=== PATIENT | male | born 1960 | race Caucasian/White ===

== ENCOUNTER → 2020-07-28 11:00 | Outpatient (BNVA) | payer OTHER, SELFPAY | PROVIDERS: PCP Internal Medicine; Referring Provider Internal Medicine; Visit Provider Nurse Practitioner Gerontology | DX: E11.65 Type 2 diabetes mellitus with hyperglycemia (principal); Z79.4 Long term (current) use of insulin; E78.5 Hyperlipidemia, unspecified; E55.9 Vitamin D deficiency, unspecified; Z79.899 Other long term (current) drug therapy | CPT/HCPCS: 82947 ==

== ENCOUNTER → 2020-11-26 13:09 | Outpatient (BNVA) | payer OTHER, SELFPAY | PROVIDERS: PCP Internal Medicine; Visit Provider Nurse Practitioner Gerontology ==

== ENCOUNTER 2022-03-02 11:43 | Outpatient (REF) | payer OTHER, SELFPAY ==
[2022-03-02 12:02] LABS: MANUAL DIFF FLAG NO
[2022-03-02 12:35] LABS: Basophils Percent Auto 0.3 % (0-2); Eosinophils Absolute Auto 0.3 X10*3/uL (0.0-0.4); Eosinophils Percent Auto 3.7 % (0-4); Hematocrit 44.1 % (42.0-52.0); Hemoglobin 14.9 g/dl (14.0-18.0); Imm Gran Abs Auto 0.02 X10*3/uL (0.00-0.03); Imm Gran Pct Auto 0.2 % (0.0-0.4); Lymphocytes Absolute Auto 2.7 X10*3/uL (1.2-4.9); Lymphocytes Percent Auto 29.4 % (20-40); Mean Corpuscular HGB Conc 33.8 g/dl (31.0-36.0); Mean Corpuscular Hemoglobin 30.9 pg (27.0-33.0); Mean Corpuscular Volume 91.5 fL (80.0-98.0); Monocytes Absolute Auto 0.9 X10*3/uL (0.1-1.2); Monocytes Percent Auto 9.9 % (2-11); Neutrophils Absolute Auto 5.2 x10*3/uL (2.0-8.3); Neutrophils Percent Auto 56.5 % (45-73); Platelet Count 233 X10*3/uL (160-400); Red Blood Count 4.82 X10*6/uL (4.60-5.80); White Blood Count 9.2 X10*3/uL (4.8-10.8)
[2022-03-02 12:54] LABS: Estimated Average Glucose 318 mg/dL; Hemoglobin A1c % 12.7 %
[2022-03-02 12:59] LABS: Alanine Aminotransferase 26 U/L (0-40); Albumin Level 4.2 g/dL (3.5-5.0); Alkaline Phosphatase 55 U/L (39-117); Anion Gap 12 (12-20); Aspartate Amino Transferase 23 U/L (5-37); Bilirubin Total 0.7 mg/dL (0.0-1.0); Blood Urea Nitrogen 23 mg/dL (9-16); Calcium 10.1 mg/dL (8.4-10.2); Carbon Dioxide 27 mmol/L (22-29); Chloride 103 mmol/L (96-108); Cholesterol 170 mg/dL; Estimated Glomerular Filt Rate > 60; Glucose Fasting 117 mg/dL (60-99); HDL Cholesterol 49 mg/dL; LDL Cholesterol Calculated 97 mg/dl; Potassium 4.6 mmol/L (3.3-5.1); Sodium 137 mmol/L (135-145); Total Protein 6.7 g/dL (6.5-8.0); Triglycerides 123 mg/dL
[2022-03-02 13:23] LABS: Thyroid Stimulating Hormone 1.49 uIU/mL (0.32-4.0)
[2022-03-02 14:07] LABS: Creatinine Urine 75.15 mg/dL; Microalbum/Creatinine Ratio Ur 9.3 ug/mg cr
== END 2022-03-02 11:44 | disposition home or self-care (01) ==
LOC: HO.LAB 11:43
PROVIDERS: PCP Internal Medicine; Visit Provider Internal Medicine
DX: Z00.00 Encounter for general adult medical examination without abnormal findings (principal); Z13.0 Encounter for screening for diseases of the blood and blood-forming organs and certain disorders involving the immune mechanism; E11.9 Type 2 diabetes mellitus without complications
CPT/HCPCS: 36415; 80053; 80061; 82043; 83036; 84443; 85025

== ENCOUNTER 2025-03-22 14:35 | Outpatient (AMB) | payer OTHER, SELFPAY ==
--- OUTSIDE RECORDS SUMMARY | 2025-03-22 14:38 | XMS_ITS | Clinical Summary ---
Author Organization [facility] Address [address], [address] [place] [address] Care Team Providers Care Clearing Hand Name Role Phone Unavailable Primary Care Provider Unavailabl e Encounters Date Type Department Care Team Description 03/05/2025 Telephone [facility] [address] [place] [address] Moises Oden MD Appointment Requested from Last 3 Months Social History Tobacco Use Types Packs/Day Years Used Date Smoking Tobacco: Never Assessed Sex and Gender Information Value Date Recorded Sex Assigned at Not on file Legal Sex Male 1:49 PM EDT Gender Identity Not on file Sexual Orientation Not on file Plan of Treatment Health Maintenance Due Date Last Done Comments Depression Screen 1974 HIV screen 1977 Hepatitis C screen 1980 DTaP/Tdap/Td vaccine (1 - Tdap) 1981 Lipids 2002 Colonoscopy 2007 Colorectal Cancer Screen 2007 FIT/FOBT: Average risk 2007 Fecal-DNA (Cologuard): Average risk 2007 Sigmoidoscopy/CT colonography 2007 Pneumococcal 50+ years Vacci ne (1 of 1 - PCV) 2012 Shingles vaccine (1 of 2) 2012 COVID-19 Vaccine (1 - 2023-2 5 season) 2024 Flu vaccine (#1) 04/05/2025 Respiratory Syncytial Virus (RSV) or age 60 yrs+ (1 - 1-dose 75+ series) 2037 Hepatitis A vaccine Aged Out No longe r eligible based on patient's age to complete this topic Hepatitis B vaccine Aged Out No longe r eligible based on patient's age to complete this topic Hib vaccine Aged Out No longer eligi ble based on patient's age to complete this topic Meningococcal (ACWY) vaccine Aged Out No longer eligible based on patient's age to complete this topic Meningococcal B vaccine Aged Out No l onger eligible based on patient's age to complete this topic Polio vaccine Aged Out No longer elig ible based on patient's age to complete this topic
--- NOTE | 2025-03-22 14:48 | MHC.PC.OV ---
Vital Signs 03/22/25 14:50 Height 5 ft 8 in Weight 169 lb 8 oz BMI 25.8 BP 120/70 Blood Pressure Location Lt brachial Position Sitting Pulse 67 Pulse Source Pulse Oximeter Temp 97.3 F Temp Source Temporal Artery Scan Pulse Oximetry (%) 98 Oxygen Delivery Method Room Air Intake Visit Reasons: annual exam/marie Dr ramos Intake Note: Patient is a new patient here to establish care for DM, Cholesterol, Sleep Apnea. Transferring care from Dr Ramos. Medical records have been requested and have received. Enterprise Systems Manager Required: No Supervisor Powder And Primer Canning: Present Accompanied by: Spouse Allergies metformin Adverse Reaction (Intermediate, Verified 03/22/25 15:05) Laziness Medication List - Last Reconciled 03/22/25 by ELAINE Hastings atorvastatin 80 mg PO DAILY insulin glargine (Basaglar KwikPen U-100 Insulin) 60 units (0.6 mL) subcut DAILY pen needle, diabetic As directed once daily Tobacco use date assessed: 03/22/25 Dental Screening Dental Screen Date: 03/22/25 Did you have a dental visit in the last 12 months?: No Did you have a dental problem in the last 6 months where you did not have access to dental care?: No Was dental information given to patient?: No HPI annual exam/marie Dr ramos HPI Details The is a reestablish care/transitioning care from Dr. Ramos. [place] and is awaiting being connected to a provider in his area. He has not been seen in office since 2021. The patient was prescribed his insulin and was booked for an in office evaluation. The patient is a 64-year-old male presenting with concerns regarding his diabetes management and upcoming cataract surgery. The patient has a history of Type 2 Diabetes Mellitus, with blood glucose levels previously reaching as high as 500 mg/dL when not on medication. He reports that his blood glucose levels have improved since resuming insulin therapy, although his Hemoglobin A1c remains elevated at 10.2%. The patient has experienced challenges in medication adherence, including a period of several months without insulin due to relocation and changes in healthcare providers. The patient is scheduled for cataract surgery but has been advised that the procedure cannot proceed until his Hemoglobin A1c is reduced to a safer level. He reports blurred vision in both eyes, with the left eye being particularly affected. The patient also has a history of hyperlipidemia, for which he is on a high dose of cholesterol medication. He has not reported any significant side effects from this medication. 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 right ear perforation, nerve deafness. Bilateral cataract surgery. [facility] Medical History (Updated 03/22/25 @ 15:36 by ELAINE Hastings) Hyperlipidemia associated with type 2 diabetes mellitus Common cold COVID-19 Erectile dysfunction Hyperlipidemia LDL goal <100 Vitamin D deficiency Diabetes mellitus with hyperglycemia Surgical History Hx of inguinal hernia surgery Hx of tonsillectomy Family History Father No problems noted. 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 1. Little interest or pleasure in doing things: not at all 2. Feeling down, depressed, or hopeless: not at all 3. Trouble falling or staying asleep, or sleeping too much: not at all 4. Feeling tired or having little energy: not at all 5. Poor appetite or overeating: not at all 6. Feeling bad about yourself - or that you are a failure or have let yourself or your family down: not at all 7. Trouble concentrating on things, such as reading the newspaper or watching television: not at all 8. Moving or speaking so slowly that other people could have noticed. Or the opposite - being so fidgety or restless that you have been moving around a lot more than usual: not at all 9. Thoughts that you would be better off or of hurting yourself in some way: not at all Total score: 0 Depression Screening Interpretation: Negative Depression Screening Done: Yes 63790 - PHQ-9 Billing: Yes Source: Developed by Cherelle Mims Kurt Kroenke and colleagues, with an educational orlando from [employer]. Thrive Questionnaire Date Thrive assessed: 03/22/25 I am a: Patient What is your living situation today?: I have a steady place to live Within the past 12 months, did the food you bought not last and you didn't have the money to get more?: Never true Within the past 12 months, did you worry whether your food would run out before you got money to buy more?: Never true Do you have trouble paying for medicines?: No Do you have trouble getting transportation to medical appointments?: No Do you have trouble paying your heating and electricity bill?: No Do you have trouble taking care of your child, family member or friend?: No Do you have trouble with day-to-day activities such as bathing, preparing meals, shopping, managing finances, etc.?: No Are you currently unemployed and looking for a job?: No Are you interested in more education?: No Please select the resources that you would like help with: None Currently or been in a relationship where the following occur: No concerns reported THRIVE Score: 0 AUDIT C Alcohol Use Questionnaire (AUDIT-C) 1. How often do you have a drink containing alcohol?: Never Total Score: 0 TRACE-7 AMB Questionnaire TRACE-7 Date TRACE - 7 assessed: 03/22/25 Feeling nervous, anxious, or on edge: 0 = Not at all Not being able to stop or control worryin = Not at all Worrying too much about different things: 0 = Not at all Trouble relaxin = Not at all Being so restless that it is hard to sit still: 0 = Not at all Becoming easily annoyed or irritable: 0 = Not at all Feeling afraid as if something awful might happen: 0 = Not at all Total TRACE-7 score (0-4 normal; 5-9 mild; 10-14 moderate; 15-21 severe): 0 Source: Developed by Cherelle Mims Kurt Kroenke and colleagues, with an educational orlando from [employer]. Review of Systems Const Denies headache(s) Eyes Reports blurry vision and Denies loss of vision ENT Denies vertigo, Denies dizziness, Denies headache(s), Reports hearing loss (right ear, reports hole in right ear) and Denies sore throat Card Denies chest pain, Denies leg edema and Denies lightheadedness Resp Denies cough, Denies hemoptysis and Denies wheezing GI Denies abdominal pain, Denies melena, Denies constipation, Denies diarrhea and Denies vomiting Denies dysuria, Denies urinary frequency and Denies urinary urgency Musc Denies arthralgias, Denies joint swelling, Denies numbness and Denies tingling Neuro Denies Abnormal speech present, Denies behavioral changes, Denies vertigo, Denies dizziness, Denies headache(s), Denies loss of vision, Denies memory loss, Denies numbness and Denies tingling Psych Denies anxiety, Denies behavioral changes, Denies depression, Denies memory loss and Denies panic attacks Abiel/Lymph Denies easy bleeding and Denies easy bruising Aller/Immun Denies wheezing Physical exam (Primary Care) Vital Signs: Last Vital Signs Temp 97.3 F 03/22/25 14:50 Pulse 67 03/22/25 14:50 BP 120/70 03/22/25 14:50 Pulse Ox 98 03/22/25 14:50 Oxygen Delivery Method Room Air 03/22/25 14:50 BMI result Body Mass Index 25.8 Tobacco/Smoking Status: Tobacco use Status Tobacco use date assessed 03/22/25 03/22/25 14:54 Patient Tobacco Use Status Never used Tobacco 03/22/25 15:00 e-Cigarette/Vaping Use Never Used 03/22/25 15:00 PHQ-9: PHQ-9 Score PHQ-9: Total score 0 03/22/25 14:54 Depression Screening Interpretation: Negative Thrive Assessment: Date of Thrive Assessment Date Thrive assessed 03/22/25 03/22/25 14:54 Currently or been in a relationship where the following occur: No concerns reported Const General: healthy appearing, no acute distress, alert and awake Nutritional Appearance: well nourished Orientation/consciousness: oriented to person, oriented to place and oriented to time HENMT Ears: TM normal on the left and TM abnormal perforated without discharge on the right (chronic) General nose exam: Normal nasal mucous membranes and turbinates present Eyes Conjunctivae: conjunctivae normal Sclerae: sclerae normal Pupils: Equal, round and reactive pupils present Neck Neck: Yes no lymphadenopathy and Yes no JVD Thyroid: Thyroid normal Carotids: no bruits Resp Effort & Inspection: normal respiratory effort and not tachypneic Auscultation: no crackles, no rales, no rhonchi and no wheezes Cardio Rate: regular rate Rhythm: regular rhythm Heart sounds: no murmurs and normal S1 and S2 GI Palpation (GI): Soft to palpation, nontender, no hepatomegaly and no splenomegaly Auscultation: normal bowel sounds Skin General skin exam: no rashes or lesions noted and dry skin Neuro General: oriented to person, oriented to place and oriented to time Cranial nerves: Yes Equal, round and reactive pupils present Speech: No Abnormal speech present Gait exam (Neuro): Normal gait present Motor exam (neuro): no tremor noted Extrem Right upper extremity: full ROM Left upper extremity: full ROM Right lower extremity: full ROM; no edema Left lower extremity: full ROM; no edema Psych Mental Status: mental status grossly normal Speech and movement: Normal speech and movement present Affect: normal affect Attitude: cooperative Thought process: Normal thought process present Results AMB Hemoglobin A1c AMB Hemoglobin A1c 10.2 % Last Edit by SHEBA Sarkar on 03/22/25 15:18 Results Reviewed Results Reviewed: a1c 10.2% Coding Level of Care Code Est Pt Level 4 (71717) Diagnoses Type 2 diabetes mellitus with hyperglycemia, without long-term current use of insulin E11.65 Diabetes mellitus type: type 2 Diabetes mellitus termite control servicer insulin use: without care home use Hyperlipidemia LDL goal <100 E78.5 Additional Codes PHQ-9 - 37659 - PHQ-9 Billing: Yes ([id number]) Time Spent (min) 42 Assessment & Plan Assessment & Plan (1) Diabetes mellitus with hyperglycemia: Code(s): E11.65 - Type 2 diabetes mellitus with hyperglycemia Category: Medical Qualifiers: Diabetes mellitus type: type 2 Diabetes mellitus care home insulin use: without termite control servicer use Qualified Code(s): E11.65 - Type 2 diabetes mellitus with hyperglycemia Plan: A1c 10.2% in office. The patient a1c was 10.4% in 2019, explained to the patient that his blood sugar has not changed. He was on Jardiance 25 mg and metformin a 1000 mg b.i.d.. Both these medications are DC'd in the patient med list. Per patient, he ran out of this medication a while back and never had them refilled. He also complained that metformin made him feel weird. The patient is currently on insulin glargine 60 units s.c daily. Jardiance 25 mg reordered, and mounjaro 2.5 mg s.c qwk was added. The patient has a follow up appointment in April that was scheduled for preoperative clearance. Explained to the patient that he cannot be cleared with an A1C of 10.2%. Hence, we need to work on getting his blood sugar down. Preordered labs, will advise, told the patient to keep his follow appt. (2) Hyperlipidemia LDL goal <100: Code(s): E78.5 - Hyperlipidemia, unspecified Category: Medical Plan: No recent lipid panel to review. Previous cholesterols have been wnl. Continue Atorvastatin 80mg daily Orders: Orders Complete Blood Count Auto Diff Today E11.65 - Type 2 diabetes mellitus with hyperglycemia, E11.69 - Type 2 diabetes mellitus with other specified complication, E55.9 - Vitamin D deficiency, unspecified, E78.5 - Hyperlipidemia, unspecified, Z01.818 - Encounter for other preprocedural examination Lipid Panel Today E11.65 - Type 2 diabetes mellitus with hyperglycemia, E11.69 - Type 2 diabetes mellitus with other specified complication, E55.9 - Vitamin D deficiency, unspecified, E78.5 - Hyperlipidemia, unspecified, Z01.818 - Encounter for other preprocedural examination TSH reflex Free T4 Today E11.65 - Type 2 diabetes mellitus with hyperglycemia, E11.69 - Type 2 diabetes mellitus with other specified complication, E55.9 - Vitamin D deficiency, unspecified, E78.5 - Hyperlipidemia, unspecified, Z01.818 - Encounter for other preprocedural examination UA CC w/rflx Micro + Cult Today E11.65 - Type 2 diabetes mellitus with hyperglycemia, E11.69 - Type 2 diabetes mellitus with other specified complication, E55.9 - Vitamin D deficiency, unspecified, E78.5 - Hyperlipidemia, unspecified, Z01.818 - Encounter for other preprocedural examination Prothrombin Time INR Today E11.65 - Type 2 diabetes mellitus with hyperglycemia, E11.69 - Type 2 diabetes mellitus with other specified complication, E55.9 - Vitamin D deficiency, unspecified, E78.5 - Hyperlipidemia, unspecified, Z01.818 - Encounter for other preprocedural examination AMB Hemoglobin A1c Today E11.65 - Type 2 diabetes mellitus with hyperglycemia Comprehensive Met. Panel Today E11.65 - Type 2 diabetes mellitus with hyperglycemia, E11.69 - Type 2 diabetes mellitus with other specified complication, E55.9 - Vitamin D deficiency, unspecified, E78.5 - Hyperlipidemia, unspecified, Z01.818 - Encounter for other preprocedural examination Medications: New tirzepatide (Mounjaro) for 4 weeks 2.5 mg (0.5 mL) subcut QWEEK 2 mL 0RF empagliflozin (Jardiance) 25 mg PO DAILY 90 tabs 3RF
[2025-03-22 14:50] VITALS: BP 120/70; PULSE 67; TEMP 36.3; O2SAT 98; BMI 25.8
== END 2025-03-22 16:30 | disposition home or self-care (01) ==
LOC: HO.HMCH 14:36
DX: E11.65 Type 2 diabetes mellitus with hyperglycemia (principal); E78.5 Hyperlipidemia, unspecified

== ENCOUNTER → 2025-03-22 14:35 | Outpatient (BNVA) | payer OTHER, SELFPAY | DX: E11.65 Type 2 diabetes mellitus with hyperglycemia (principal); E78.5 Hyperlipidemia, unspecified; Z79.4 Long term (current) use of insulin; Z79.899 Other long term (current) drug therapy; Z13.31 Encounter for screening for depression; Z13.39 Encounter for screening examination for other mental health and behavioral disorders | CPT/HCPCS: 83036; 96127 ==

== ENCOUNTER 2025-04-23 14:23 | Outpatient (AMB) | payer OTHER, SELFPAY ==
[2025-04-23 14:34] VITALS: BP 112/60; PULSE 57; RESP 18; TEMP 36.2; O2SAT 97; BMI 25.4
--- NOTE | 2025-04-23 14:34 | A.OFFPC_ITS ---
Vital Signs 04/23/25 14:34 Height 5 ft 8 in Weight 167 lb 4 oz BMI 25.4 BP 112/60 Blood Pressure Location Lt brachial Position Sitting Respiration 18 Pulse 57 Pulse Source Pulse Oximeter Temp 97.1 F Temp Source Temporal Artery Scan Pulse Oximetry (%) 97 Oxygen Delivery Method Room Air Intake Visit Reasons: DR Octavio Wong 05/03 & 05/27 Glue Bone Drier Required: No Accompanied by: Self / Same As Patient Allergies metformin Adverse Reaction (Intermediate, Verified 04/24/25 08:11) Laziness Medication List - Last Reconciled 04/24/25 by ELAINE Hastings atorvastatin 80 mg PO DAILY empagliflozin (Jardiance) 25 mg PO DAILY insulin glargine (Basaglar KwikPen U-100 Insulin) 60 units (0.6 mL) subcut DAILY pen needle, diabetic As directed once daily tirzepatide (Mounjaro) 2.5 mg (0.5 mL) subcut QWEEK Tobacco use date assessed: 04/23/25 Dental Screening Dental Screen Date: 04/23/25 Did you have a dental visit in the last 12 months?: No Did you have a dental problem in the last 6 months where you did not have access to dental care?: No Was dental information given to patient?: No HPI DR Octavio Wong 05/03 & 05/27 HPI Details The patient is a 64-year-old male presenting with diabetes mellitus management and cataract surgery evaluation. The patient has a history of diabetes mellitus, with a recent hemoglobin A1c level of 8.5, down from a previous level of 10.2. He reports episodes of hypoglycemia, with blood glucose levels dropping below 100 mg/dL, sometimes reaching as low as 59 mg/dL, which is attributed to inadequate food intake while on insulin therapy. The patient has been advised to maintain a balanced diet and monitor blood glucose levels regularly to prevent hypoglycemic episodes. The patient is also being evaluated for cataract surgery, with the left eye scheduled for surgery on May 03 and the right eye on May 27. He has been advised to ensure his blood glucose levels are stable before undergoing surgery to promote optimal healing. Additionally, the patient has a history of a heart murmur, for which an EKG was performed to ensure cardiac safety prior to surgery. The EKG results were normal, indicating no immediate cardiac concerns. Patient had blood work done on 01/04/2025 that showed in the H&H of 15.7/47.7, platelets 269, WBC 8.3, sodium 133, chloride 97, potassium 4.8, BUN 17, creatinine 0.77. A1c done in office on 03/22/25 was 10.2% adjustments were made to the patient diabetic medications. Patient was started on Mounjaro 2.5 mg weekly and Jardiance 25 mg daily. And was instructed to continue glargine 60 units subcutaneous daily. A1c rechecked on 04/23/25 was 8.5%. Patient denies chest pain, shortness of breath, dizziness, or heart palpitation Denies abdominal pain or change in bowel habits PFSH Medical History Hyperlipidemia associated with type 2 diabetes mellitus Common cold COVID-19 Erectile dysfunction Hyperlipidemia LDL goal <100 Vitamin D deficiency Diabetes mellitus with hyperglycemia Surgical History Hx of inguinal hernia surgery Hx of tonsillectomy Family History Father No problems noted. 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 1. Little interest or pleasure in doing things: not at all 2. Feeling down, depressed, or hopeless: not at all 3. Trouble falling or staying asleep, or sleeping too much: not at all 4. Feeling tired or having little energy: not at all 5. Poor appetite or overeating: not at all 6. Feeling bad about yourself - or that you are a failure or have let yourself or your family down: not at all 7. Trouble concentrating on things, such as reading the newspaper or watching television: not at all 8. Moving or speaking so slowly that other people could have noticed. Or the opposite - being so fidgety or restless that you have been moving around a lot more than usual: not at all 9. Thoughts that you would be better off or of hurting yourself in some way: not at all Total score: 0 Depression Screening Interpretation: Negative Depression Screening Done: Yes Source: Developed by Drs. Jesús Fermin, Cherelle Castellanos, Malvin Ashley and colleagues, with an educational orlando from [employer]. Thrive Questionnaire Date Thrive assessed: 04/23/25 I am a: Patient What is your living situation today?: I have a steady place to live Within the past 12 months, did the food you bought not last and you didn't have the money to get more?: Never true Within the past 12 months, did you worry whether your food would run out before you got money to buy more?: Never true Do you have trouble paying for medicines?: No Do you have trouble getting transportation to medical appointments?: No Do you have trouble paying your heating and electricity bill?: No Do you have trouble taking care of your child, family member or friend?: No Do you have trouble with day-to-day activities such as bathing, preparing meals, shopping, managing finances, etc.?: No Are you currently unemployed and looking for a job?: No Are you interested in more education?: No Please select the resources that you would like help with: None Currently or been in a relationship where the following occur: No concerns reported THRIVE Score: 0 AUDIT C Alcohol Use Questionnaire (AUDIT-C) 1. How often do you have a drink containing alcohol?: Never Total Score: 0 TRACE-7 AMB Questionnaire TRACE-7 Date TRACE - 7 assessed: 04/23/25 Feeling nervous, anxious, or on edge: 0 = Not at all Not being able to stop or control worryin = Not at all Worrying too much about different things: 0 = Not at all Trouble relaxin = Not at all Being so restless that it is hard to sit still: 0 = Not at all Becoming easily annoyed or irritable: 0 = Not at all Feeling afraid as if something awful might happen: 0 = Not at all Total TRACE-7 score (0-4 normal; 5-9 mild; 10-14 moderate; 15-21 severe): 0 Source: Developed by Drs. Jesús Fermin, Cherelle Castellanos, Malvin Ashley and colleagues, with an educational orlando from [employer]. Review of Systems Const Denies headache(s) Eyes Reports blurry vision, Reports change in vision and Denies loss of vision ENT Denies vertigo, Denies dizziness, Denies headache(s) and Denies sore throat Card Denies chest pain, Denies leg edema and Denies lightheadedness Resp Denies cough, Denies hemoptysis and Denies wheezing GI Denies abdominal pain, Denies melena, Denies constipation, Denies diarrhea and Denies vomiting Denies dysuria, Denies urinary frequency and Denies urinary urgency Musc Denies arthralgias, Denies joint swelling, Reports numbness (Hands and feet) and Reports tingling (Hands and feet) Neuro Denies Abnormal speech present, Denies behavioral changes, Denies vertigo, Denies dizziness, Denies headache(s), Denies loss of vision, Denies memory loss, Reports numbness (Hands and feet) and Reports tingling (Hands and feet) Psych Denies anxiety, Denies behavioral changes, Denies depression, Denies memory loss and Denies panic attacks Abiel/Lymph Denies easy bleeding and Denies easy bruising Aller/Immun Denies wheezing Physical exam (Primary Care) Vital Signs: Last Vital Signs Temp 97.1 F 04/23/25 14:34 Pulse 57 04/23/25 14:34 Resp 18 04/23/25 14:34 BP 112/60 04/23/25 14:34 Pulse Ox 97 04/23/25 14:34 Oxygen Delivery Method Room Air 04/23/25 14:34 BMI result Body Mass Index 25.4 Tobacco/Smoking Status: Tobacco use Status Tobacco use date assessed 04/23/25 04/23/25 14:40 Patient Tobacco Use Status Never used Tobacco 04/23/25 14:40 e-Cigarette/Vaping Use Never Used 04/23/25 14:40 PHQ-9: PHQ-9 Score PHQ-9: Total score 0 04/24/25 11:06 Depression Screening Interpretation: Negative Thrive Assessment: Date of Thrive Assessment Date Thrive assessed 04/23/25 04/23/25 14:40 Currently or been in a relationship where the following occur: No concerns reported Const General: healthy appearing, no acute distress, alert and awake Nutritional Appearance: well nourished Orientation/consciousness: oriented to person, oriented to place and oriented to time HENMT Ears: TM's normal bilaterally General nose exam: Normal nasal mucous membranes and turbinates present Eyes Conjunctivae: conjunctivae normal Sclerae: sclerae normal Pupils: Equal, round and reactive pupils present Neck Neck: Yes no lymphadenopathy and Yes no JVD Thyroid: Thyroid normal Carotids: no bruits Resp Effort & Inspection: normal respiratory effort and not tachypneic Auscultation: no crackles, no rales, no rhonchi and no wheezes Cardio Rate: regular rate Rhythm: regular rhythm Heart sounds: no murmurs and normal S1 and S2 GI Palpation (GI): Soft to palpation, nontender, no hepatomegaly and no splenomegaly Auscultation: normal bowel sounds Skin General skin exam: no rashes or lesions noted and dry skin Neuro General: oriented to person, oriented to place and oriented to time Cranial nerves: Yes Equal, round and reactive pupils present Speech: No Abnormal speech present Gait exam (Neuro): Normal gait present Motor exam (neuro): no tremor noted Extrem Right upper extremity: full ROM Left upper extremity: full ROM Right lower extremity: full ROM; no edema Left lower extremity: full ROM; no edema Psych Mental Status: mental status grossly normal Speech and movement: Normal speech and movement present Affect: normal affect Attitude: cooperative Thought process: Normal thought process present Coding Level of Care Code Est Pt Level 4 (30572) Diagnoses Preoperative clearance Z01.818 Type 2 diabetes mellitus with hyperglycemia, without long-term current use of insulin E11.65 Diabetes mellitus type: type 2 Diabetes mellitus terminal worker insulin use: without skilled nursing use Cataract of both eyes, unspecified cataract type H26.9 Cataract type: unspecified Laterality: bilateral Time Spent (min) 38 Assessment & Plan Assessment & Plan (1) Preoperative clearance: Code(s): Z01.818 - Encounter for other preprocedural examination Category: Medical Plan: Regarding preop clearance, the patient is at acceptable risk for proposed surgery. Reviewed with the patient that no surgery is completely free of risk and that this examination is to assist the surgeon in reviewing informed c onsent. Labs were reviewed and EKG done in office and the patient was cleared to proceed with surgery. (2) Diabetes mellitus with hyperglycemia: Code(s): E11.65 - Type 2 diabetes mellitus with hyperglycemia Category: Medical Qualifiers: Diabetes mellitus type: type 2 Diabetes mellitus terminal worker insulin use: without terminal worker use Qualified Code(s): E11.65 - Type 2 diabetes mellitus with hyperglycemia Plan: A1c done in office on 03/22/25 was 10.2% adjustments were made to the patient diabetic medications. Patient was started on Mounjaro 2.5 mg weekly and Jardiance 25 mg daily. And was instructed to continue glargine 60 units subcutaneous daily. A1c rechecked on 04/23/25 was 8.5%. Reinforced low sugar/carbohydrate diet and activity as tolerated (3) Cataract: Code(s): H26.9 - Unspecified cataract Category: Medical Qualifiers: Cataract type: unspecified Laterality: bilateral Qualified Code(s): H26.9 - Unspecified cataract Plan: Patient eyesight is severely impacted. He is being assisted by his with ambulation to prevent him from walking into things. He has a planned cataract surgery on 05/03 left eye follow up on 05/27 with right eye. Orders: Orders AMB Hemoglobin A1c 04/23/25 E11.65 - Type 2 diabetes mellitus with hyperglycemia
--- OUTSIDE RECORDS SUMMARY | 2025-04-23 15:43 | XMS_ITS | Clinical Summary ---
Author Organization [facility] Address [address], [address] [place] [address] Care Team Providers Care Customer Loyalty Representative Name Role Phone Unavailable Primary Care Provider Unavailabl e Encounters Date Type Department Care Team Description 03/05/2025 Telephone [facility] [address] [place] [id number] Moises Oden MD Appointment Requested [...]
== END 2025-04-23 16:17 | disposition home or self-care (01) ==
LOC: HO.HMCH 14:24
DX: Z01.818 Encounter for other preprocedural examination (principal); E11.65 Type 2 diabetes mellitus with hyperglycemia; H26.9 Unspecified cataract

== ENCOUNTER → 2025-04-23 14:23 | Outpatient (BNVA) | payer OTHER, SELFPAY | DX: Z01.818 Encounter for other preprocedural examination (principal); E11.65 Type 2 diabetes mellitus with hyperglycemia; R01.1 Cardiac murmur, unspecified; H26.9 Unspecified cataract | CPT/HCPCS: 83036; 96127 ==